=== PATIENT | male | born 1950 | race Caucasian/White ===

== ENCOUNTER 2017-05-28 12:25 | Inpatient (IN) | payer MEDICARE ==
[~2017-05-28] VITALS: Ht 177.8 cm; Wt 89.3 kg
[2017-05-28 12:44] LABS: BASOPHILS % (AUTO) 0.4 % (0.0-5.0); EOSINOPHILS % (AUTO) 4.9 % (0.0-8.0); HEMATOCRIT 41.6 % (42-54); LYMPHOCYTES % (AUTO) 7.3 % (21.0-51.0); MEAN CORPUSCULAR HEMOGLOBIN 32.5 pg (27.0-33.0); MEAN CORPUSCULAR HGB CONC 34.1 g/dL (32.0-36.0); MEAN CORPUSCULAR VOLUME 95.3 fL (79-99); MONOCYTES % (AUTO) 5.5 % (3.0-13.0); NEUTROPHILS % (AUTO) 81.9 % (40.0-77.0); PLATELET COUNT (AUTO) 182 K/uL (130-400); RED BLOOD CELL COUNT(AUTO) 4.37 MIL/uL (4.50-6.20); RED CELL DISTRIBUTION WIDTH 13.5 % (11.0-15.5); WHITE BLOOD COUNT (AUTO) 8.1 K/uL (4.8-10.8)
[2017-05-28] MEDS ORDERED: IPRATROPIUM/ALBUTEROL SULFATE 3 ML SOLUTION IH ONE ×4 (12:47→21:08)
[2017-05-28] MEDS ORDERED: METHYLPREDNISOLONE SOD SUCC 125MG/2ML VIAL ONE ×2 (13:01→20:50)
[2017-05-28 13:04] LABS: CREATININE 0.9 mg/dL (0.5-1.5); POTASSIUM 4.1 mmol/L (3.5-5.1)
[2017-05-28 13:09] LABS: ALBUMIN 3.8 g/dL (3.5-5.0); BILIRUBIN,TOTAL 0.5 mg/dL (0.2-1.0); TOTAL PROTEIN, SERUM 7.3 g/dL (6.0-8.3)
[2017-05-28] MEDS ORDERED: LEVOFLOXACIN 500 MG/D5W 100 ML 100 ML ONE (17:55)
[2017-05-28] MEDS ORDERED: TRAZODONE HCL 50 MG TAB ONE (22:57)
[2017-05-28] MEDS ORDERED: CLONAZEPAM 0.5 MG TABLET ONE (22:58)
[2017-05-28] MEDS ORDERED: ALBUTEROL SULFATE 0.083% 2.5 MG/3 ML INH IH ONE (23:01)
[2017-05-28] MEDS ORDERED: ONDANSETRON HCL 4 MG/2 ML VIAL IV PRN (23:30)
[2017-05-28] MEDS ORDERED: CEFTRIAXONE 1GM/D5W 50ML 50 ML IV SCH (23:30)
[2017-05-28] MEDS: AZITHROMYCIN 500MG+NS 250ML 250 ML IV SCH (23:30)
[2017-05-29] MEDS ORDERED: CEFTRIAXONE SODIUM 1 GM ONE ×2 (00:03→11:56)
[2017-05-29] MEDS ORDERED: AZITHROMYCIN 500MG+NS 250ML 250 ML IV ONE ×2 (00:03→11:55)
[2017-05-29] MEDS ORDERED: IPRATROPIUM/ALBUTEROL SULFATE 3 ML SOLUTION IH ONE ×4 (01:20→13:26)
[2017-05-29] MEDS ORDERED: METHYLPREDNISOLONE SOD SUCC 40MG/ML 1ML ONE (04:36)
[2017-05-29 05:07] LABS: BASOPHILS % (AUTO) 0.2 % (0.0-5.0); HEMATOCRIT 36.8 % (42-54); LYMPHOCYTES % (AUTO) 9.2 % (21.0-51.0); MEAN CORPUSCULAR HEMOGLOBIN 33.5 pg (27.0-33.0); MEAN CORPUSCULAR HGB CONC 35.2 g/dL (32.0-36.0); MEAN CORPUSCULAR VOLUME 95.1 fL (79-99); MONOCYTES % (AUTO) 5.6 % (3.0-13.0); PLATELET COUNT (AUTO) 178 K/uL (130-400); RED BLOOD CELL COUNT(AUTO) 3.87 MIL/uL (4.50-6.20); RED CELL DISTRIBUTION WIDTH 13.4 % (11.0-15.5); WHITE BLOOD COUNT (AUTO) 6.7 K/uL (4.8-10.8)
[2017-05-29 05:17] LABS: CREATININE 1.1 mg/dL (0.5-1.5); POTASSIUM 3.4 mmol/L (3.5-5.1)
[2017-05-29] MEDS ORDERED: ALBUTEROL SULFATE 0.083% 2.5 MG/3 ML INH IH ONE (08:18)
[2017-05-29] MEDS: FAMOTIDINE 20MG TAB 20 MG TAB PO SCH ×2 (09:00→20:49)
[2017-05-29] MEDS: ENOXAPARIN SODIUM 40 MG/0.4 ML SYRINGE SQ SCH (09:00)
[2017-05-29] MEDS ORDERED: FAMOTIDINE 20MG TAB 20 MG TAB ONE (10:32)
[2017-05-29] MEDS ORDERED: ENOXAPARIN SODIUM 40 MG/0.4 ML SYRINGE SQ ONE (11:55)
[2017-05-29 13:55] VITALS: BP 134/86
[2017-05-29] MEDS ORDERED: AMLO5TAB2 PO (14:25)
[2017-05-29] MEDS ORDERED: CARV25TA PO (14:25)
[2017-05-29] MEDS ORDERED: PRED1TAB PO (14:25)
[2017-05-29] MEDS ORDERED: AZIT500T4 PO (14:25)
[2017-05-29] MEDS ORDERED: AEC81 PO (14:25)
[2017-05-29] MEDS ORDERED: CLON0.5T4 PO (14:25)
[2017-05-29] MEDS ORDERED: [UNRECOGNIZED DRUG - CODE] PO (14:25)
[2017-05-29] MEDS ORDERED: CALC-322 PO (14:25)
[2017-05-29] MEDS ORDERED: MULT-1192 PO (14:25)
[2017-05-29] MEDS ORDERED: ROFL500T PO (14:25)
[2017-05-29] MEDS ORDERED: LOSA25TA21 PO (14:25)
[2017-05-29] MEDS ORDERED: BUPR100T13 PO (14:25)
[2017-05-29] MEDS ORDERED: MONT4GRA6 PO (14:25)
[2017-05-29] MEDS ORDERED: TRAZ-144 PO (14:25)
[2017-05-29 15:59] VITALS: BP 145/93
[2017-05-29] MEDS: IPRATROPIUM/ALBUTEROL SULFATE 3 ML SOLUTION IH SCH ×3 (16:57→22:19)
[2017-05-29] MEDS: METHYLPREDNISOLONE SOD SUCC 125MG/2ML VIAL IV SCH ×2 (17:02→23:33)
[2017-05-29] MEDS: ACETAMINOPHEN 325 MG TAB PO PRN (17:13)
[2017-05-29 19:00] VITALS: BP 147/96
[2017-05-29] MEDS: GUAIFENESIN-DM 200/20 MG 10 ML PO PRN (20:48)
[2017-05-29 23:00] VITALS: BP 151/94
[2017-05-29] MEDS: AZITHROMYCIN 500MG+NS 250ML 250 ML IV SCH (23:33)
[2017-05-30] MEDS: IPRATROPIUM/ALBUTEROL SULFATE 3 ML SOLUTION IH SCH ×6 (02:31→22:37)
[2017-05-30 04:22] VITALS: BP 152/98
[2017-05-30] MEDS ORDERED: ALBUTEROL SULFATE 0.083% 2.5 MG/3 ML INH IH PRN (05:15)
[2017-05-30] MEDS: ACETAMINOPHEN 325 MG TAB PO PRN (05:24)
[2017-05-30] MEDS ORDERED: LEVOFLOXACIN 500 MG/D5W 100 ML 100 ML IV SCH (05:30)
[2017-05-30] MEDS: METHYLPREDNISOLONE SOD SUCC 125MG/2ML VIAL IV SCH (06:26)
[2017-05-30 07:45] VITALS: BP 145/96
[2017-05-30] MEDS: CLONAZEPAM 0.5 MG TABLET PO PRN ×3 (08:15→20:11)
[2017-05-30 08:19] VITALS: BP 140/92
[2017-05-30] MEDS: GUAIFENESIN-DM 200/20 MG 10 ML PO PRN ×3 (08:28→20:02)
[2017-05-30] MEDS: FAMOTIDINE 20MG TAB 20 MG TAB PO SCH ×2 (08:31→20:02)
[2017-05-30] MEDS: ENOXAPARIN SODIUM 40 MG/0.4 ML SYRINGE SQ SCH (08:32)
[2017-05-30] MEDS: ALBUTEROL SULFATE 0.083% 2.5 MG/3 ML INH IH PRN (08:34)
[2017-05-30 12:00] VITALS: BP 142/95
[2017-05-30] MEDS: CEFTRIAXONE SODIUM 1 GM IVP SCH (14:11)
[2017-05-30 16:00] VITALS: BP 146/90
[2017-05-30 20:00] VITALS: BP 160/102
[2017-05-30] MEDS: HYDRALAZINE HCL 20 MG/ML VIAL IV PRN (20:01)
[2017-05-30] MEDS: TRAZODONE HCL 100 MG TABLET PO SCH (20:02)
[2017-05-30] MEDS: SYMBICORT 160-4.5 MCG INHALER IH SCH (20:13)
[2017-05-31] VITALS (7 sets, daily range): BP systolic 136–177; BP diastolic 84–120
[2017-05-31] MEDS: AZITHROMYCIN 500MG+NS 250ML 250 ML IV SCH ×2 (00:55→23:47)
[2017-05-31] MEDS: IPRATROPIUM/ALBUTEROL SULFATE 3 ML SOLUTION IH SCH ×6 (02:34→21:38)
[2017-05-31] MEDS: SYMBICORT 160-4.5 MCG INHALER IH SCH ×2 (09:00→21:00)
[2017-05-31] MEDS: CEFTRIAXONE SODIUM 1 GM IVP SCH (09:19)
[2017-05-31] MEDS: PREDNISONE 10 MG TABLET PO SCH (09:20)
[2017-05-31] MEDS: FAMOTIDINE 20MG TAB 20 MG TAB PO SCH ×2 (09:21→21:22)
[2017-05-31] MEDS: CARVEDILOL 25 MG TABLET PO SCH (09:21)
[2017-05-31] MEDS: AMLODIPINE BESYLATE 5 MG TAB PO SCH (09:22)
[2017-05-31] MEDS: ENOXAPARIN SODIUM 40 MG/0.4 ML SYRINGE SQ SCH (09:22)
[2017-05-31 10:08] LABS: ABG BASE EXCESS 3.2 mmol/L (-2.0-3.0); ABG HCO3 28.3 mmol/L (21.0-28.0); ABG OXYGEN SATURATION 94.8 % (95.0-99.0); ABG PCO2 45 mmHg (35-48)
[2017-05-31 10:17] LABS: CREATININE 1.2 mg/dL (0.5-1.5)
[2017-05-31 10:31] LABS: POTASSIUM 2.6 mmol/L (3.5-5.1)
[2017-05-31] MEDS ORDERED: POTASSIUM CHLORIDE 10% ELIXIR 20 MEQ/15 ML UDCUP PO PRN (11:00)
[2017-05-31] MEDS: LIDOCAINE HCL-MPF 1% 2ML VIAL IVP PRN ×2 (11:47→18:17)
[2017-05-31] MEDS: POTASSIUM CHLORIDE 20MEQ/100ML 100 ML IV PRN ×2 (11:48→18:17)
[2017-05-31] MEDS: CLONAZEPAM 0.5 MG TABLET PO PRN (11:56)
[2017-05-31] MEDS: POTASSIUM CHLORIDE 20 MEQ ERTAB PO PRN (15:00)
[2017-05-31] MEDS: GUAIFENESIN-DM 200/20 MG 10 ML PO PRN (15:45)
[2017-05-31] MEDS: LOSARTAN 50 MG TABLET PO SCH (17:47)
[2017-05-31] MEDS: HYDRALAZINE HCL 20 MG/ML VIAL IV PRN (21:22)
[2017-05-31] MEDS: TRAZODONE HCL 100 MG TABLET PO SCH (21:22)
[2017-06-01] VITALS (7 sets, daily range): BP systolic 111–154; BP diastolic 73–104
[2017-06-01] MEDS: IPRATROPIUM/ALBUTEROL SULFATE 3 ML SOLUTION IH SCH ×5 (06:00→21:45)
[2017-06-01 06:08] LABS: CREATININE 0.9 mg/dL (0.5-1.5); POTASSIUM 3.6 mmol/L (3.5-5.1)
[2017-06-01] MEDS: AMLODIPINE BESYLATE 5 MG TAB PO SCH (09:15)
[2017-06-01] MEDS: PREDNISONE 10 MG TABLET PO SCH (09:15)
[2017-06-01] MEDS: FAMOTIDINE 20MG TAB 20 MG TAB PO SCH ×2 (09:15→20:40)
[2017-06-01] MEDS: CARVEDILOL 25 MG TABLET PO SCH (09:16)
[2017-06-01] MEDS: ENOXAPARIN SODIUM 40 MG/0.4 ML SYRINGE SQ SCH (09:16)
[2017-06-01] MEDS: CEFTRIAXONE SODIUM 1 GM IVP SCH (09:23)
[2017-06-01] MEDS: CLONAZEPAM 0.5 MG TABLET PO PRN (09:23)
[2017-06-01] MEDS: POTASSIUM CHLORIDE 20 MEQ ERTAB PO PRN ×2 (09:31→17:19)
[2017-06-01] MEDS: LOSARTAN 50 MG TABLET PO SCH (17:19)
[2017-06-01] MEDS: TRAZODONE HCL 100 MG TABLET PO SCH (20:40)
[2017-06-01] MEDS: HYDRALAZINE HCL 20 MG/ML VIAL IV PRN (20:41)
[2017-06-01] MEDS: SYMBICORT 160-4.5 MCG INHALER IH SCH (21:00)
[2017-06-01] MEDS: AZITHROMYCIN 500MG+NS 250ML 250 ML IV SCH (22:35)
[2017-06-02] MEDS: IPRATROPIUM/ALBUTEROL SULFATE 3 ML SOLUTION IH SCH ×6 (01:52→21:54)
[2017-06-02 03:17] VITALS: BP 125/85
[2017-06-02] MEDS: CLONAZEPAM 0.5 MG TABLET PO PRN ×3 (06:04→18:50)
[2017-06-02 08:00] VITALS: BP 139/105
[2017-06-02] MEDS: FAMOTIDINE 20MG TAB 20 MG TAB PO SCH ×2 (09:48→20:19)
[2017-06-02] MEDS: ENOXAPARIN SODIUM 40 MG/0.4 ML SYRINGE SQ SCH (09:48)
[2017-06-02] MEDS: PREDNISONE 10 MG TABLET PO SCH (09:48)
[2017-06-02] MEDS: CEFTRIAXONE SODIUM 1 GM IVP SCH (09:48)
[2017-06-02] MEDS: AMLODIPINE BESYLATE 5 MG TAB PO SCH (09:48)
[2017-06-02] MEDS: CARVEDILOL 25 MG TABLET PO SCH (09:49)
[2017-06-02] MEDS: ACETAMINOPHEN 325 MG TAB PO PRN (10:07)
[2017-06-02 11:45] VITALS: BP 103/72
[2017-06-02] MEDS ORDERED: METHYLPREDNISOLONE SOD SUCC 125MG/2ML VIAL ONE (13:13)
[2017-06-02] MEDS ORDERED: METHYLPREDNISOLONE SOD SUCC 125MG/2ML VIAL IVP SCH (13:15)
[2017-06-02 13:52] LABS: ABG BASE EXCESS 7.8 mmol/L (-2.0-3.0); ABG HCO3 35.2 mmol/L (21.0-28.0); ABG OXYGEN SATURATION 95.4 % (95.0-99.0); ABG PCO2 61 mmHg (35-48)
[2017-06-02 15:58] VITALS: BP 139/89
[2017-06-02] MEDS: LOSARTAN 50 MG TABLET PO SCH (16:54)
[2017-06-02] MEDS: METHYLPREDNISOLONE SOD SUCC 125MG/2ML VIAL IVP SCH (18:46)
[2017-06-02 19:00] VITALS: BP 135/92
[2017-06-02] MEDS: TRAZODONE HCL 100 MG TABLET PO SCH (20:19)
[2017-06-02] MEDS: SYMBICORT 160-4.5 MCG INHALER IH SCH (20:21)
[2017-06-02] MEDS: AZITHROMYCIN 500MG+NS 250ML 250 ML IV SCH (22:42)
[2017-06-02 23:00] VITALS: BP 113/71
[2017-06-03] MEDS: IPRATROPIUM/ALBUTEROL SULFATE 3 ML SOLUTION IH SCH ×6 (01:43→22:10)
[2017-06-03 03:00] VITALS: BP 115/80
[2017-06-03] MEDS: METHYLPREDNISOLONE SOD SUCC 125MG/2ML VIAL IVP SCH ×3 (03:47→19:29)
[2017-06-03 04:26] LABS: ABG BASE EXCESS 6.8 mmol/L (-2.0-3.0); ABG HCO3 32.3 mmol/L (21.0-28.0); ABG OXYGEN SATURATION 93.1 % (95.0-99.0); ABG PCO2 49 mmHg (35-48)
[2017-06-03 05:42] LABS: BASOPHILS % (AUTO) 0.2 % (0.0-5.0); EOSINOPHILS % (AUTO) 0.1 % (0.0-8.0); HEMATOCRIT 36.5 % (42-54); LYMPHOCYTES % (AUTO) 9.6 % (21.0-51.0); MEAN CORPUSCULAR HEMOGLOBIN 32.9 pg (27.0-33.0); MEAN CORPUSCULAR HGB CONC 34.4 g/dL (32.0-36.0); MEAN CORPUSCULAR VOLUME 95.4 fL (79-99); MONOCYTES % (AUTO) 7.2 % (3.0-13.0); NEUTROPHILS % (AUTO) 82.9 % (40.0-77.0); PLATELET COUNT (AUTO) 173 K/uL (130-400); RED BLOOD CELL COUNT(AUTO) 3.83 MIL/uL (4.50-6.20); RED CELL DISTRIBUTION WIDTH 13.1 % (11.0-15.5); WHITE BLOOD COUNT (AUTO) 5.9 K/uL (4.8-10.8)
[2017-06-03 05:53] LABS: CREATININE 0.9 mg/dL (0.5-1.5); POTASSIUM 3.9 mmol/L (3.5-5.1)
[2017-06-03 06:20] LABS: B-TYPE NATRIURETIC PEPTIDE 16 pg/mL (0-100)
[2017-06-03 07:00] VITALS: BP 141/96
[2017-06-03] MEDS: AMLODIPINE BESYLATE 5 MG TAB PO SCH (08:04)
[2017-06-03] MEDS: FAMOTIDINE 20MG TAB 20 MG TAB PO SCH ×2 (08:04→20:11)
[2017-06-03] MEDS: CARVEDILOL 25 MG TABLET PO SCH (08:04)
[2017-06-03] MEDS: ENOXAPARIN SODIUM 40 MG/0.4 ML SYRINGE SQ SCH (08:05)
[2017-06-03] MEDS: CEFTRIAXONE SODIUM 1 GM IVP SCH (08:05)
[2017-06-03] MEDS: CLONAZEPAM 0.5 MG TABLET PO PRN (08:05)
[2017-06-03] MEDS: SYMBICORT 160-4.5 MCG INHALER IH SCH ×2 (08:09→20:11)
[2017-06-03 11:10] VITALS: BP 127/82
[2017-06-03 16:00] VITALS: BP 140/88
[2017-06-03] MEDS: LOSARTAN 50 MG TABLET PO SCH (16:52)
[2017-06-03] MEDS ORDERED: METHYLPREDNISOLONE SOD SUCC 125MG/2ML VIAL ONE (19:26)
[2017-06-03 19:43] VITALS: BP 143/97
[2017-06-03] MEDS: GUAIFENESIN-DM 200/20 MG 10 ML PO PRN (20:10)
[2017-06-03] MEDS: TRAZODONE HCL 100 MG TABLET PO SCH (20:10)
[2017-06-03 23:37] VITALS: BP 123/76
[2017-06-03] MEDS: AZITHROMYCIN 500MG+NS 250ML 250 ML IV SCH (23:56)
[2017-06-04] MEDS: IPRATROPIUM/ALBUTEROL SULFATE 3 ML SOLUTION IH SCH ×6 (01:48→21:47)
[2017-06-04 03:58] VITALS: BP 122/91
[2017-06-04] MEDS: METHYLPREDNISOLONE SOD SUCC 40MG/ML 1ML IVP SCH ×3 (04:15→21:07)
[2017-06-04 07:30] VITALS: BP 153/94
[2017-06-04] MEDS: CARVEDILOL 25 MG TABLET PO SCH (09:10)
[2017-06-04] MEDS: FAMOTIDINE 20MG TAB 20 MG TAB PO SCH ×2 (09:10→21:07)
[2017-06-04] MEDS: AMLODIPINE BESYLATE 5 MG TAB PO SCH (09:10)
[2017-06-04] MEDS: SYMBICORT 160-4.5 MCG INHALER IH SCH ×2 (09:10→21:00)
[2017-06-04] MEDS: CEFTRIAXONE SODIUM 1 GM IVP SCH (09:11)
[2017-06-04] MEDS: ENOXAPARIN SODIUM 40 MG/0.4 ML SYRINGE SQ SCH (09:11)
[2017-06-04 11:00] VITALS: BP 158/104
[2017-06-04] MEDS: CLONAZEPAM 0.5 MG TABLET PO PRN (14:36)
[2017-06-04 16:00] VITALS: BP 139/90
[2017-06-04] MEDS: LOSARTAN 50 MG TABLET PO SCH (16:41)
[2017-06-04 19:00] VITALS: BP 150/97
[2017-06-04] MEDS: TRAZODONE HCL 100 MG TABLET PO SCH (21:08)
[2017-06-05] VITALS: BP 121/81
[2017-06-05] MEDS: IPRATROPIUM/ALBUTEROL SULFATE 3 ML SOLUTION IH SCH ×4 (02:22→14:33)
[2017-06-05 04:00] VITALS: BP 131/89
[2017-06-05 05:02] LABS: BASOPHILS % (AUTO) 0.2 % (0.0-5.0); LYMPHOCYTES % (AUTO) 4.8 % (21.0-51.0); MEAN CORPUSCULAR HEMOGLOBIN 32.3 pg (27.0-33.0); MEAN CORPUSCULAR HGB CONC 33.7 g/dL (32.0-36.0); MEAN CORPUSCULAR VOLUME 95.8 fL (79-99); MONOCYTES % (AUTO) 5.2 % (3.0-13.0); NEUTROPHILS % (AUTO) 89.8 % (40.0-77.0); PLATELET COUNT (AUTO) 185 K/uL (130-400); RED BLOOD CELL COUNT(AUTO) 3.86 MIL/uL (4.50-6.20); RED CELL DISTRIBUTION WIDTH 13.2 % (11.0-15.5); WHITE BLOOD COUNT (AUTO) 9.3 K/uL (4.8-10.8)
[2017-06-05 05:20] LABS: POTASSIUM 3.8 mmol/L (3.5-5.1)
[2017-06-05] MEDS: METHYLPREDNISOLONE SOD SUCC 40MG/ML 1ML IVP SCH ×2 (06:40→12:20)
[2017-06-05] MEDS: CLONAZEPAM 0.5 MG TABLET PO PRN ×2 (06:53→12:20)
[2017-06-05 08:00] VITALS: BP 146/90
[2017-06-05] MEDS: FAMOTIDINE 20MG TAB 20 MG TAB PO SCH (08:43)
[2017-06-05] MEDS: CEFTRIAXONE SODIUM 1 GM IVP SCH (08:43)
[2017-06-05] MEDS: AMLODIPINE BESYLATE 5 MG TAB PO SCH (08:44)
[2017-06-05] MEDS: CARVEDILOL 25 MG TABLET PO SCH (08:44)
[2017-06-05] MEDS: ENOXAPARIN SODIUM 40 MG/0.4 ML SYRINGE SQ SCH (08:45)
[2017-06-05] MEDS: SYMBICORT 160-4.5 MCG INHALER IH SCH (08:45)
[2017-06-05] MEDS ORDERED: CLON0.5T23 PO (09:21)
[2017-06-05] MEDS ORDERED: TRAZ-147 PO ×2 (09:21→15:30)
[2017-06-05] MEDS ORDERED: ALBU2.5V2 IH ×2 (09:21→15:30)
[2017-06-05] MEDS ORDERED: BUPR150T3 PO (09:21)
[2017-06-05] MEDS ORDERED: FORM20VI2 IH (09:21)
[2017-06-05] MEDS ORDERED: FURO20TA4 PO (09:21)
[2017-06-05] MEDS ORDERED: MONT10TA24 PO (09:21)
[2017-06-05] MEDS ORDERED: MULT-1258 PO (09:21)
[2017-06-05] MEDS ORDERED: CARV6.25 PO (09:21)
[2017-06-05] MEDS ORDERED: IPRA3AMP4 IH ×2 (09:21→15:30)
[2017-06-05] MEDS ORDERED: BUDE0.5A8 IH (09:21)
[2017-06-05] MEDS ORDERED: AMLO10TA2 PO (09:21)
[2017-06-05] MEDS ORDERED: TERB250T4 PO (09:21)
[2017-06-05] MEDS ORDERED: ACET600C3 PO (09:21)
[2017-06-05] MEDS ORDERED: CALC-1009 PO (09:21)
[2017-06-05] MEDS ORDERED: PRED10TA23 PO (09:21)
[2017-06-05 11:44] VITALS: BP 135/78
[2017-06-05] MEDS: ALBUTEROL SULFATE 0.083% 2.5 MG/3 ML INH IH PRN (12:30)
[2017-06-05] MEDS ORDERED: ONDA4VIA30 IV (15:30)
[2017-06-05] MEDS ORDERED: Home Medication IH (15:30)
[2017-06-05] MEDS ORDERED: ENOX40DI8 SQ (15:30)
[2017-06-05] MEDS ORDERED: GUAIFDM PO (15:30)
[2017-06-05] MEDS ORDERED: ACET-2247 PO (15:30)
[2017-06-05] MEDS ORDERED: FAMO20TA8 PO (15:30)
[2017-06-05] MEDS ORDERED: AMLO5TAB4 PO (15:30)
[2017-06-05] MEDS ORDERED: LOSA50TA2 PO (15:30)
[2017-06-05] MEDS ORDERED: CLON0.5T4 PO (15:30)
[2017-06-05] MEDS ORDERED: CARV25TA PO (15:30)
[2017-06-05 16:11] VITALS: BP 149/96
== END 2017-06-05 17:25 | disposition home health service (06) | DRG 189 ==
LOC: EDH 12:25 → EDHIP 17:00 → 3CH 05-29 15:35
PROVIDERS: ADMIT Family Medicine; ATTEND Family Medicine
PROC: 5A09357 Assistance with Respiratory Ventilation, Less than 24 Consecutive Hours, Continuous Positive Airway Pressure (ICD-10-PCS; principal; 2017-05-31)
PROC: 5A09357 Assistance with Respiratory Ventilation, Less than 24 Consecutive Hours, Continuous Positive Airway Pressure (ICD-10-PCS; 2017-06-01)
PROC: 5A09357 Assistance with Respiratory Ventilation, Less than 24 Consecutive Hours, Continuous Positive Airway Pressure (ICD-10-PCS; 2017-06-02)
PROC: 5A09357 Assistance with Respiratory Ventilation, Less than 24 Consecutive Hours, Continuous Positive Airway Pressure (ICD-10-PCS; 2017-06-03)
PROC: 5A09357 Assistance with Respiratory Ventilation, Less than 24 Consecutive Hours, Continuous Positive Airway Pressure (ICD-10-PCS; 2017-06-04)
PROC: 5A09357 Assistance with Respiratory Ventilation, Less than 24 Consecutive Hours, Continuous Positive Airway Pressure (ICD-10-PCS; 2017-06-05)
DX: J96.21 Acute and chronic respiratory failure with hypoxia (principal); Z99.81 Dependence on supplemental oxygen; J44.0 Chronic obstructive pulmonary disease with (acute) lower respiratory infection; J44.1 Chronic obstructive pulmonary disease with (acute) exacerbation; J96.22 Acute and chronic respiratory failure with hypercapnia; I10 Essential (primary) hypertension; J20.9 Acute bronchitis, unspecified; E66.9 Obesity, unspecified; E87.6 Hypokalemia; F32.9 Major depressive disorder, single episode, unspecified; F41.9 Anxiety disorder, unspecified; G47.33 Obstructive sleep apnea (adult) (pediatric); Z87.891 Personal history of nicotine dependence; Z68.28 Body mass index [BMI] 28.0-28.9, adult; Z88.0 Allergy status to penicillin; Z88.8 Allergy status to other drugs, medicaments and biological substances
CPT/HCPCS: 36415; 36600; 71045; 80048; 80053; 82803; 83880; 84484; 85025; 87633; 87804; 93005; 94640; 94660; 94664; 99291; A4218; J0360; J0456; J0696; J1650; J1956; J2920; J2930; J3480; J3490; J7512